=== PATIENT | male | born 1995 | race American Indian/Alaskan Native ===

== ENCOUNTER 2021-09-30 13:59 | Emergency (ER) | payer OTHER ==
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
[2021-09-30 21:53] VITALS: BP 110/69
== END 2021-09-30 22:26 | disposition home or self-care (01) ==
LOC: ED 13:59
DX: S16.1XXA Strain of muscle, fascia and tendon at neck level, initial encounter (principal); V89.2XXA Person injured in unspecified motor-vehicle accident, traffic, initial encounter; Y93.89 Activity, other specified; Y92.89 Other specified places as the place of occurrence of the external cause; Y99.8 Other external cause status
CPT/HCPCS: 99282